=== PATIENT | male | born 1965 | race African-American/Black ===

== ENCOUNTER 2018-11-08 14:59 | Outpatient (CLI) | payer BC ==
--- NOTE | 2018-11-08 18:11 | RAD ---
THREE VIEWS RIGHT KNEE: History: Intermittent pain. Comparison: None. FINDINGS: Joint spaces are preserved. No joint effusion. No fracture or malalignment. IMPRESSION: Unremarkable three views right knee. POS: [facility]
== END 2018-11-08 15:00 | disposition home or self-care (01) ==
LOC: SCSRAD 14:59
PROVIDERS: ATTEND Family Medicine
DX: M25.561 Pain in right knee (principal)